=== PATIENT | male | born 1930 | race Hispanic/Latino ===

== ENCOUNTER 2017-05-27 10:15 | Inpatient (IN) | payer MEDICARE, BC ==
[2017-05-27] MEDS ORDERED: Sodium Chloride 0.9% 500 ML IV ONE (10:45)
--- NOTE | 2017-05-27 11:01 | C.PDOC ---
History Of Present Illness 87 year old male, HTN, dementia, colon CA, BPH , "lung cyst", presents to the ED with complaints of weakness for the last few days. Patient lives alone and is usually able to ambulate without difficulty. Today, neighbor found pt sitting on floor secondary to weakness. also admits to decreased appetite. denies fall, head injury, chest pain, or shortness of breath. Pt is a poor historian. Time Seen by Provider: 05/27/17 10:35 Chief Complaint (Nursing): Weakness/Neurological Deficit History Per: Patient, Other (neighbor) History/Exam Limitations: other (patient poor historian, neighbor accompanied and provided some history ) Onset/Duration Of Symptoms: Hrs, Gradual (decrease in appetite ) Current Symptoms Are (Timing): Still Present Seizure Or Post-ictal Symptoms: None Fall Associated With With Symptoms: No Recent travel outside of the [place]: No Additional History Per: Prior Records Past Medical History Reviewed: Historical Data, Nursing Documentation, Vital Signs Vital Signs: Last Vital Signs Temp 98.3 F 05/27/17 10:19 Pulse 87 05/27/17 14:51 Resp 16 05/27/17 14:51 BP 120/78 05/27/17 14:51 Pulse Ox 95 05/27/17 16:24 - Medical History PMH: Alzheimer's Disease, HTN Family History: States: Unknown Family Hx - Social History Hx Alcohol Use: No Hx Substance Use: No - Immunization History Hx Tetanus Toxoid Vaccination: No Hx Influenza Vaccination: No Hx Pneumococcal Vaccination: No Review Of Systems Review Of Systems: ROS cannot be obtained secondary to pt's inabilty to answer questions. Constitutional: Positive for: Weakness (and decreased appetite ) Cardiovascular: Negative for: Chest Pain, Palpitations Respiratory: Negative for: Cough, Shortness of Breath Gastrointestinal: Negative for: Nausea, Vomiting, Abdominal Pain Physical Exam - Physical Exam Appears: Non-toxic, No Acute Distress Skin: Warm, Dry, Pale Head: Atraumatic Eye(s): bilateral: Normal Inspection, EOMI Oral Mucosa: Moist Neck: Normal ROM, Supple Chest: Symmetrical, No Deformity Cardiovascular: Rhythm Regular, Murmur Respiratory: Normal Breath Sounds, No Rales, No Rhonchi, No Stridor, No Wheezing Gastrointestinal/Abdominal: Soft, No Tenderness, No Distention, No Guarding, No Rebound Extremity: No Pedal Edema, No Calf Tenderness, Capillary Refill (good capillary refill, less than 2 seconds ), No Deformity, No Swelling Neurological/Psych: Other (alert and awake) ED Course And Treatment - Laboratory Results Result Diagrams: 05/27/17 11:02 05/27/17 11:02 ECG: Interpreted By Me, Viewed By Me ECG Rhythm: Sinus Rhythm (87 bpm) O2 Sat by Pulse Oximetry: 95 (room air ) - Other Rad CXR X-Ray: Viewed By Me, Read By Radiologist Interpretation: CXR findings: TECHNIQUE:Chest, one view. FINDINGS: Left-sided MediPort extends to the SVC. Examination limited by habitus. LUNGS: Large rounded left hilar opacity. Right peritracheal opacity may reflect tortuous vasculature exaggerated by patient obliquity however alternatives including thyroid goiter or adenopathy cannot be excluded. Please note that chest x-ray has limited sensitivity for the detection of pulmonary masses. PLEURA:No significant pleural effusion identified. No definite pneumothorax . CARDIOVASCULAR: Heart size appears borderline enlarged. Dense atherosclerotic calcifications of the aortic knob. OSSEOUS STRUCTURES:Degenerative changes. VISUALIZED UPPER ABDOMEN: Left upper quadrant surgical clips. OTHER FINDINGS: None. IMPRESSION: Left-sided MediPort. Large rounded left hilar opacity. Correlate clinically. Neoplasm is suspected. Aneurysm cannot be excluded in the proper clinical setting. Right peritracheal opacity may reflect tortuous vasculature exaggerated by patient obliquity however alternatives including thyroid goiter or adenopathy cannot be excluded. Case discussed with KEYUR Yousif on 05/27/17 at 11:22 a.m. - CT Scan/US CT HEAD WITHOUT CONTRAST Other Rad Studies (CT/US): Read By Radiologist, Radiology Report Reviewed CT/US Interpretation: TECHNIQUE: Axial computed tomography images were obtained through the head/brain without intravenous contrast. Radiation dose: Total exam DLP = 924.38 mGy-cm. This CT exam was performed using one or more of the following dose reduction techniques: Automated exposure control, adjustment of the mA and/or kV according to patient size, and/or use of iterative reconstruction technique. FINDINGS: HEMORRHAGE: No intracranial hemorrhage. BRAIN: Diffuse atrophy with prominence of the ventricles and sulci noted. No mass effect or edema. Scattered periventricular and subcortical white matter hypodensities, which are nonspecific, but often seen with chronic microvascular ischemic disease. Please note that MRI with diffusion imaging is more sensitive in the detection of acute ischemic event. VENTRICLES: No hydrocephalus. CALVARIUM: Unremarkable. PARANASAL SINUSES: Mild mucosal thickening of the ethmoid air cells and left sphenoid sinus. MASTOID AIR CELLS : Unremarkable as visualized. No inflammatory changes. OTHER FINDINGS: None. IMPRESSION: Generalized atrophy. Nonspecific white matter changes. Progress Note: Head CT, EKG, UA, and CBC were ordered. Patient was given fluids. case discussed with Dr Beal, agreeed upon plan and admission. Disposition - Disposition Disposition: HOSPITALIZED Disposition Time: 14:00 Condition: STABLE - Clinical Impression Clinical Impression: UTI (urinary tract infection), Elevated alkaline phosphatase level, Anemia, Dementia, Opacity of lung on imaging study - Scribe Statement The provider has reviewed the documentation as recorded by the Scribe Krystle Nick All medical record entries made by the Scribe were at my direction and personally dictated by me. I have reviewed the chart and agree that the record accurately reflects my personal performance of the history, physical exam, medical decision making, and the department course for this patient. I have also personally directed, reviewed, and agree with the discharge instructions and disposition.
[2017-05-27 11:08] LABS: BASO % 0.5 % (0.0-2.0); EOS % 0.3 % (0.0-4.0); HEMATOCRIT 27.6 % (35.0-51.0); LYMPH # 0.4 K/uL (1.0-4.3); LYMPH % 6.4 % (20.0-40.0); MEAN CORPUSCULAR HEMOGLOBIN 28.7 pg (27.0-31.0); MEAN CORPUSCULAR HGB CONC 32.2 g/dL (33.0-37.0); MEAN PLATELET VOLUME 8.4 fL (7.2-11.7); MONO # 0.4 K/uL (0.0-0.8); NRBC % 0.2 % (0.0-2.0); PLATELET COUNT 238 K/uL (130-400); RED CELL DISTRIBUTION WIDTH 20.2 % (11.5-14.5); WHITE BLOOD COUNT 6.7 K/uL (4.8-10.8)
[2017-05-27 11:15] LABS: CHLORIDE 99 mmol/L (98-107)
[2017-05-27 11:16] LABS: POTASSIUM 3.6 mmol/L (3.6-5.2); SODIUM 137 mmol/L (132-148)
[2017-05-27 11:18] LABS: AST/SGOT 26 U/L (17-59); CARBON DIOXIDE 25 mmol/L (22-30); GFR AFRICAN-AMERICAN > 60; TOTAL PROTEIN 6.3 g/dL (6.3-8.3)
[2017-05-27 11:19] LABS: ALKALINE PHOSPHATASE 404 U/L (38-126); ALT/SGPT 19 U/L (21-72); BLOOD UREA NITROGEN 23 mg/dL (9-20); CALCIUM 8.6 mg/dl (8.6-10.4); GLUCOSE,RANDOM 189 mg/dL (75-110)
--- NOTE | 2017-05-27 11:27 | RAD ---
HISTORY: SOB COMPARISON: None available. TECHNIQUE: Chest, one view. FINDINGS: Left-sided MediPort extends to the SVC. Examination limited by habitus. LUNGS: Large rounded left hilar opacity. Right peritracheal opacity may reflect tortuous vasculature exaggerated by patient obliquity however alternatives including thyroid goiter or adenopathy cannot be excluded. Please note that chest x-ray has limited sensitivity for the detection of pulmonary masses. PLEURA: No significant pleural effusion identified. No definite pneumothorax . CARDIOVASCULAR: Heart size appears borderline enlarged. Dense atherosclerotic calcifications of the aortic knob. OSSEOUS STRUCTURES: Degenerative changes. VISUALIZED UPPER ABDOMEN: Left upper quadrant surgical clips. OTHER FINDINGS: None. IMPRESSION: Left-sided MediPort. Large rounded left hilar opacity. Correlate clinically. Neoplasm is suspected. Aneurysm cannot be excluded in the proper clinical setting. Right peritracheal opacity may reflect tortuous vasculature exaggerated by patient obliquity however alternatives including thyroid goiter or adenopathy cannot be excluded. Case discussed with KEYUR Yousif on 05/27/17 at 11:22 a.m.
[2017-05-27 11:46] LABS: EOSINOPHIL 1 % (0-4); NEUTROPHIL 83 % (50-75); TOTAL CELLS COUNTED 100
--- NOTE | 2017-05-27 11:48 | CT ---
PROCEDURE: CT HEAD WITHOUT CONTRAST. HISTORY: R/O Bleed COMPARISON: None available. TECHNIQUE: Axial computed tomography images were obtained through the head/brain without intravenous contrast. Radiation dose: Total exam DLP = 924.38 mGy-cm. This CT exam was performed using one or more of the following dose reduction techniques: Automated exposure control, adjustment of the mA and/or kV according to patient size, and/or use of iterative reconstruction technique. FINDINGS: HEMORRHAGE: No intracranial hemorrhage. BRAIN: Diffuse atrophy with prominence of the ventricles and sulci noted. No mass effect or edema. Scattered periventricular and subcortical white matter hypodensities, which are nonspecific, but often seen with chronic microvascular ischemic disease. Please note that MRI with diffusion imaging is more sensitive in the detection of acute ischemic event. VENTRICLES: No hydrocephalus. CALVARIUM: Unremarkable. PARANASAL SINUSES: Mild mucosal thickening of the ethmoid air cells and left sphenoid sinus. MASTOID AIR CELLS: Unremarkable as visualized. No inflammatory changes. OTHER FINDINGS: None. IMPRESSION: Generalized atrophy. Nonspecific white matter changes.
[2017-05-27 12:05] LABS: RBC URINE 12 /hpf (0-3); URINE BACTERIA RARE (<OCC); URINE BILIRUBIN NEGATIVE (NEGATIVE); URINE COLOR Amber (YELLOW); URINE GLUCOSE (UA) NORMAL (Normal); URINE KETONE NEGATIVE (NEGATIVE); URINE LEUKOCYTE ESTERASE 3+ Leu/uL (Negative); URINE PROTEIN 2+ mg/dL (NEGATIVE); WBC URINE 409 /hpf (0-5)
[2017-05-27 12:06] LABS: URINE BLOOD TRACE (NEGATIVE)
[2017-05-27] MEDS ORDERED: Sodium Chloride 0.9% 1,000 ML IV SCH (14:45)
[2017-05-27] MEDS ORDERED: cefTRIAXone IV 1 gm in Dextros 50 ML IVPB ONE (15:00)
--- NOTE | 2017-05-27 15:21 | CP.PCM.HP ---
<Isaiah Bell - Last Filed: 05/27/17 15:36> History of Present Illness - History of Present Illness History of Present Illness: CC: Weakness HPI: Patient is a 87 year old male with a history of BPH, HTN, dementia, colon cancer and urinary retention. He is here because of wosening weakness over the past several days according to the patient's friend. She is at bedside giving most of the history. She says she found him sitting up on the floor but that his legs were extremely weak so she decided to take him to the ED. He is here complaining of worsening weakness. He says his legs feel very weak though usually he is able to walk around the house without any assistance. The friend at bedside she has not noticed much movement from him over the past several days. Patient also has a advance directive with oral agreement for DNR/DNI. PMH: see above PSH: unable to obtain due to patient's dementia PFH: unable to obtain PSH: Lives alone, no smoking, etoh use, or illicit drug use, retired PMD: Dr. Moore Allergies: NKA Home Medication: Metoprolol, Aricept, Namenda, Finesteride, and Flomax. Present on Admission - Present on Admission Any Indicators Present on Admission: No History of DVT/PE: No History of Uncontrolled Diabetes: No Urinary Catheter: No Decubitus Ulcer Present: No History Surgical Site Infection Following: None Review of Systems - Review of Systems Systems not reviewed;Unavailable: Dementia All systems: reviewed and no additional remarkable complaints except - Constitutional Constitutional: Weakness. absent: Anorexia, Chills - EENT Eyes: absent: Change in Vision Ears: absent: Dizziness - Cardiovascular Cardiovascular: absent: Chest Pain - Respiratory Respiratory: absent: Dyspnea - Gastrointestinal Gastrointestinal: absent: Constipation, Diarrhea, Early Satiety, Hematemesis, Hematochezia, Nausea, Vomiting - Genitourinary Genitourinary: absent: Hematuria - Musculoskeletal Musculoskeletal: Muscle Weakness - Neurological Neurological: Weakness - Psychiatric Psychiatric: absent: Anxiety, Depression - Endocrine Endocrine: absent: Fatigue Past Patient History - Past Social History Smoking Status: Never Smoked - CARDIAC Hx Hypertension: Yes - NEUROLOGICAL Hx Alzheimer's Disease: Yes - GENITOURINARY/GYNECOLOGICAL Hx Prostate Problems: Yes - PSYCHIATRIC Hx Substance Use: No Meds Allergies/Adverse Reactions: Allergies Allergy/AdvReac Type Severity Reaction Status Date / Time No Known Allergies Allergy Verified 05/27/17 10:19 Physical Exam - Constitutional Appears: Non-toxic, No Acute Distress, Unkempt - Head Exam Head Exam: NORMAL INSPECTION - Eye Exam Eye Exam: Normal appearance, PERRL Pupil Exam: NORMAL ACCOMODATION Additional comments: pallor - Respiratory Exam Respiratory Exam: Clear to Auscultation Bilateral. absent: Rales, Rhonchi, Wheezes - Cardiovascular Exam Cardiovascular Exam: Irregular Rhythm, +S1, +S2, Systolic Murmur. absent: Gallop, Rubs - GI/Abdominal Exam GI & Abdominal Exam: Normal Bowel Sounds, Soft. absent: Guarding, Rebound, Tenderness - Extremities Exam Extremities exam: Positive for: normal inspection. Negative for: calf tenderness, pedal edema, tenderness - Back Exam Back exam: NORMAL INSPECTION - Neurological Exam Neurological exam: Alert - Psychiatric Exam Psychiatric exam: Normal Affect, Normal Mood - Skin Skin Exam: Pallor, Warm Results - Vital Signs Recent Vital Signs: Last Vital Signs Temp 98.3 F 05/27/17 10:19 Pulse 87 05/27/17 14:51 Resp 16 05/27/17 14:51 BP 120/78 05/27/17 14:51 Pulse Ox 96 05/27/17 14:51 - Labs Result Diagrams: 05/27/17 11:02 05/27/17 11:02 - EKG Data EKG Interpreted by: Myself EKG shows normal: Sinus rhythm, [place] Rate: Normal - EKG Data Interpretation: Other - Impressions Impression: sinus arrythmai, no acute ST changes Assessment & Plan (1) Anemia Assessment and Plan: Hbg is 8.9, his last Hbg was around 12. Consider transfusion if Hbg continues to drop considerably. Patient admitted to regular inpatient floor. Stool Ob x3, iron studies, B12, and folate, and retic count. hbg will most likely drop due to the IV fluids Status: Acute Priority: High (2) UTI (urinary tract infection) Assessment and Plan: Rocephin 1 gram daily Status: Acute Priority: High (3) Weakness Assessment and Plan: physical therapy, patient may need GRAZYNA Fall precaution thyroid studies and iron studies Status: Acute Priority: Medium (4) Elevated CPK Assessment and Plan: Patient most likely has some Rhabdomyalsis, IV fluids re check level in the morning. Status: Acute Priority: Medium (5) Elevated alkaline phosphatase level Assessment and Plan: re check in the am. Status: Acute Priority: Medium (6) High blood sugar Assessment and Plan: Follow up Hbg A1C. Status: Acute Priority: Medium (7) HTN (hypertension) Assessment and Plan: continue home Metoprolol 25mg daily Status: Chronic Priority: Medium (8) Dementia Assessment and Plan: continue Namenda and Aricept. Status: Chronic Priority: Medium (9) BPH (benign prostatic hyperplasia) Status: Chronic Priority: Medium (10) Prophylactic measure Assessment and Plan: pepcid 20mg bid Heparin 5000 units sc Q8h SCDs Status: Acute <Marlo Beal M - Last Filed: 05/28/17 15:39> Results - Vital Signs Recent Vital Signs: Last Vital Signs Temp 97.6 F 05/28/17 07:54 Pulse 89 05/28/17 07:54 Resp 20 05/28/17 07:54 BP 149/70 05/28/17 07:54 Pulse Ox 97 05/28/17 07:54 - Labs Result Diagrams: 05/28/17 08:20 05/28/17 08:20 Labs: Laboratory Results - last 24 hr 05/27/17 05/27/17 05/27/17 17:45 17:45 19:42 WBC RBC Hgb Hct MCV MCH MCHC RDW Plt Count MPV Neut % (Auto) Lymph % (Auto) [place] % (Auto) Eos % (Auto) Baso % (Auto) Neut # Lymph # [place] # Eos # Baso # Retic Count Sodium Potassium Chloride Carbon Dioxide Anion Gap BUN Creatinine Est GFR ( Amer) Est GFR (Non-Af Amer) Random Glucose Calcium Phosphorus Magnesium Iron 29 L TIBC 221 L % Saturation 13 L 16 L Ferritin Total Bilirubin AST ALT Alkaline Phosphatase Total Creatine Kinase Total Protein Albumin Globulin Albumin/Globulin Ratio Vitamin B12 Free T4 TSH 3rd Generation Stool Occult Blood Negative 05/28/17 05/28/17 05/28/17 08:20 08:20 08:20 WBC 6.0 RBC 3.20 L Hgb 9.2 L Hct 28.4 L MCV 88.7 MCH 28.9 MCHC 32.6 L RDW 19.9 H Plt Count 223 MPV 8.6 Neut % (Auto) 78.0 H Lymph % (Auto) 12.9 L [place] % (Auto) 8.0 Eos % (Auto) 0.7 Baso % (Auto) 0.4 Neut # 4.7 Lymph # 0.8 L [place] # 0.5 Eos # 0.0 Baso # 0.0 Retic Count 3.7 H Sodium 136 Potassium 4.2 Chloride 101 Carbon Dioxide 25 Anion Gap 14 BUN 20 Creatinine 0.9 Est GFR ( Amer) > 60 Est GFR (Non-Af Amer) > 60 Random Glucose 120 H Calcium 8.7 Phosphorus 3.2 Magnesium 2.3 Iron TIBC % Saturation Ferritin 544.0 Total Bilirubin 0.6 AST 51 ALT 26 Alkaline Phosphatase 429 H Total Creatine Kinase 1074 H Total Protein 6.1 L Albumin 3.1 L Globulin 3.0 Albumin/Globulin Ratio 1.0 Vitamin B12 404 Free T4 1.11 TSH 3rd Generation 2.42 Stool Occult Blood Attending/Attestation - Attestation I have personally seen and examined this patient.: Yes I have fully participated in the care of the patient.: Yes I have reviewed all pertinent clinical information: Yes Notes (Text): 05/28/17 15:39 Patient was seen and examined at bedside with the resident Patient is being admitted for anemia and rhabdomyolysis Restart patient on IV fluids We'll monitor CBC We will check the iron studies and stool occult I discussed the plan of care with the resident and agree with the assessment and documented
[2017-05-27 18:13] LABS: IRON 29 ug/dL (49-181)
[2017-05-28] MEDS ORDERED: Sodium Chloride 0.9% 1,000 ML IV SCH (08:02)
[2017-05-28 08:43] LABS: BASO % 0.4 % (0.0-2.0); EOS % 0.7 % (0.0-4.0); HEMATOCRIT 28.4 % (35.0-51.0); LYMPH # 0.8 K/uL (1.0-4.3); LYMPH % 12.9 % (20.0-40.0); MEAN CELL VOLUME 88.7 fL (80.0-94.0); MEAN CORPUSCULAR HEMOGLOBIN 28.9 pg (27.0-31.0); MEAN CORPUSCULAR HGB CONC 32.6 g/dL (33.0-37.0); MEAN PLATELET VOLUME 8.6 fL (7.2-11.7); MONO # 0.5 K/uL (0.0-0.8); NRBC % 0.1 % (0.0-2.0); RED CELL DISTRIBUTION WIDTH 19.9 % (11.5-14.5); RETIC% 3.7 % (0.5-1.5)
[2017-05-28 08:56] LABS: ALKALINE PHOSPHATASE 429 U/L (38-126); ALT/SGPT 26 U/L (21-72); AST/SGOT 51 U/L (17-59); BILIRUBIN,TOTAL 0.6 mg/dL (0.2-1.3); BLOOD UREA NITROGEN 20 mg/dL (9-20); CALCIUM 8.7 mg/dl (8.6-10.4); CARBON DIOXIDE 25 mmol/L (22-30); CHLORIDE 101 mmol/L (98-107); GFR AFRICAN-AMERICAN > 60; GLUCOSE,RANDOM 120 mg/dL (75-110); MAGNESIUM 2.3 mg/dL (1.6-2.3); PHOSPHOROUS 3.2 mg/dL (2.5-4.5); POTASSIUM 4.2 mmol/L (3.6-5.2); SODIUM 136 mmol/L (132-148); TOTAL PROTEIN 6.1 g/dL (6.3-8.3)
[2017-05-28 09:17] LABS: THYROID STIMULATING HORMONE 2.42 mIU/L (0.46-4.68)
[2017-05-28] MEDS: Metoprolol Succinate 25 mg XL Tab PO SCH (10:20)
[2017-05-28] MEDS ORDERED: Pneumococcal 23-Valent Vaccine IM ONE (13:25)
[2017-05-28] MEDS ORDERED: Iohexol 240 (50 ml) PO ONE (14:15)
[2017-05-28] MEDS: Sodium Chloride 0.9% 1,000 ML IV SCH ×2 (14:23→21:39)
--- NOTE | 2017-05-28 15:33 | CP.PCM.PN ---
<Marlo Beal M - Last Filed: 05/28/17 16:57> Objective - Vital Signs/Intake and Output Vital Signs (last 24 hours): Temp Pulse Resp BP Pulse Ox 97.6 F 89 20 149/70 97 05/28/17 07:54 05/28/17 07:54 05/28/17 07:54 05/28/17 07:54 05/28/17 07:54 Intake and Output: 05/28/17 05/28/17 06:59 18:59 Intake Total 540 Balance 540 - Medications Medications: Current Medications Donepezil HCl (Aricept) 10 mg PO HS [facility] Last Admin: 05/27/17 22:35 Dose: 10 mg Famotidine (Pepcid) 20 mg PO BID [facility] Last Admin: 05/28/17 10:20 Dose: 20 mg Finasteride (Proscar) 5 mg PO DAILY [facility] Last Admin: 05/28/17 10:20 Dose: 5 mg Heparin Sodium (Porcine) (Heparin) 5,000 units SC Q8 [facility] Last Admin: 05/28/17 14:19 Dose: 5,000 units Home Med (Patient's Own Medication) [address] [facility] Ceftriaxone Sodium 1 gm/ (Sodium Chloride) 100 mls @ 100 mls/hr IVPB Q24H [facility] Last Admin: 05/28/17 14:20 Dose: 100 mls/hr Sodium Chloride (Sodium Chloride 0.9%) 1,000 mls @ 100 mls/hr IV .Q10H [facility] Last Admin: 05/28/17 14:23 Dose: 100 mls/hr Metoprolol Succinate (Toprol Xl) 25 mg PO DAILY [facility] Last Admin: 05/28/17 10:20 Dose: 25 mg Pneumococcal Polyvalent Vaccine (Pneumovax 23 Vaccine) 0.5 ml IM .ONCE ONE Stop: 05/30/17 10:01 Tamsulosin HCl (Flomax) 0.4 mg PO DAILY [facility] Last Admin: 05/28/17 10:20 Dose: 0.4 mg - Labs Labs: 05/28/17 08:20 05/28/17 08:20 Attending/Attestation - Attestation I have personally seen and examined this patient.: Yes I have fully participated in the care of the patient.: Yes I have reviewed all pertinent clinical information, including history, physical exam and plan: Yes Notes (Text): 05/28/17 16:55 Patient was seen and examined at bedside Patient complains of right lower quadrant pain. On examination there is swelling and tenderness in the right lower quadrant We'll obtain a CT scan of the abdomen and pelvis We will monitor H&H and transfuse as needed CK has trended up We will start the patient on IV fluids and increase the rate to 100 mL/h I discussed the plan of care with the resident With the assessment and plan documented. 05/28/17 16:57 <Isaiah Bell H - Last Filed: 05/28/17 21:54> Subjective - Date & Time of Evaluation Date of Evaluation: 05/28/17 Time of Evaluation: 15:00 - Subjective Subjective: Dr. Beal service: Patient seen and examined in room. He is complaining of abdominal pain and constipation. He says he has been having this pain for about 6 months. Patient reports no fever or chills either. Objective - Vital Signs/Intake and Output Vital Signs (last 24 hours): Temp Pulse Resp BP Pulse Ox 97.6 F 89 20 149/70 97 05/28/17 07:54 05/28/17 07:54 05/28/17 07:54 05/28/17 07:54 05/28/17 07:54 Intake and Output: 05/28/17 05/28/17 06:59 18:59 Intake Total 540 Balance 540 - Medications Medications: Current Medications Donepezil HCl (Aricept) 10 mg PO HS [facility] Last Admin: 05/27/17 22:35 Dose: 10 mg Famotidine (Pepcid) 20 mg PO BID [facility] Last Admin: 05/28/17 10:20 Dose: 20 mg Finasteride (Proscar) 5 mg PO DAILY [facility] Last Admin: 05/28/17 10:20 Dose: 5 mg Heparin Sodium (Porcine) (Heparin) 5,000 units SC Q8 [facility] Last Admin: 05/28/17 14:19 Dose: 5,000 units Ceftriaxone Sodium 1 gm/ (Sodium Chloride) 100 mls @ 100 mls/hr IVPB Q24H [facility] Last Admin: 05/28/17 14:20 Dose: 100 mls/hr Sodium Chloride (Sodium Chloride 0.9%) 1,000 mls @ 100 mls/hr IV .Q10H [facility] Last Admin: 05/28/17 14:23 Dose: 100 mls/hr Memantine (Namenda) 10 mg PO Q12 [facility] Metoprolol Succinate (Toprol Xl) 25 mg PO DAILY [facility] Last Admin: 05/28/17 10:20 Dose: 25 mg Pneumococcal Polyvalent Vaccine (Pneumovax 23 Vaccine) 0.5 ml IM .ONCE ONE Stop: 05/30/17 10:01 Tamsulosin HCl (Flomax) 0.4 mg PO DAILY [facility] Last Admin: 05/28/17 10:20 Dose: 0.4 mg - Labs Labs: 05/28/17 08:20 05/28/17 08:20 - Constitutional Appears: Non-toxic, No Acute Distress - Respiratory Exam Respiratory Exam: Clear to Ausculation Bilateral. absent: Rales, Rhonchi, Wheezes - Cardiovascular Exam Cardiovascular Exam: REGULAR RHYTHM, RRR, +S1, +S2. absent: Gallop, Rubs - GI/Abdominal Exam GI & Abdominal Exam: Soft, Normal Bowel Sounds. absent: Tenderness - Psychiatric Exam Psychiatric exam: Normal Affect, Normal Mood - Skin Skin Exam: Pallor, Warm Assessment and Plan - Assessment and Plan (Free Text) Assessment: (1) Anemia Assessment and Plan: 05/28: hbg is 9.1, iron is very low stool ob ix negative, will give IV ferricit. Hbg is 8.9, his last Hbg was around 12. Consider transfusion if Hbg continues to drop considerably. Patient admitted to regular inpatient floor. Stool Ob x3, iron studies, B12, and folate, and retic count. hbg will most likely drop due to the IV fluids Status: Acute Priority: High (2) UTI (urinary tract infection) Assessment and Plan: 05/28: day 2 of IV Rocephin, follow up urine culture Rocephin 1 gram daily Status: Acute Priority: High (3) Weakness Assessment and Plan: physical therapy, patient may need GRAZYNA Fall precaution thyroid studies and iron studies Status: Acute Priority: Medium (4) Elevated CPK Assessment and Plan: 05/28: CPK increased to over 1000, continue IV fluids Patient most likely has some Rhabdomyalsis, IV fluids re check level in the morning. Status: Acute Priority: Medium (5) Elevated alkaline phosphatase level Assessment and Plan: 05/28: still elevated, followup Alk phos isoenzyme re check in the am. Status: Acute Priority: Medium (6) High blood sugar Assessment and Plan: 05/28: Hbg A1C pending Follow up Hbg A1C. Status: Acute Priority: Medium (7) HTN (hypertension) Assessment and Plan: continue home Metoprolol 25mg daily Status: Chronic Priority: Medium (8) Dementia Assessment and Plan: continue Namenda and Aricept. Status: Chronic Priority: Medium (9) BPH (benign prostatic hyperplasia) Status: Chronic Priority: Medium 05/28: continue Finseride and Flomax. (10) Prophylactic measure Assessment and Plan: pepcid 20mg bid Heparin 5000 units sc Q8h [facility] for constipation
[2017-05-28] MEDS ORDERED: Iodixanol 320 MG/ML 100 ML BOTTLE IV ONE (15:45)
--- NOTE | 2017-05-28 17:04 | CT ---
PROCEDURE: CT Abdomen and Pelvis with oral and IV contrast. HISTORY: possible sbo, hx of colon ca COMPARISON: None available. TECHNIQUE: Contiguous axial images of the abdomen and pelvis. Oral and IV contrast was administered. Coronal and Sagittal reformats generated and reviewed. Contrast dose: 100 cc Visipaque 320 Radiation dose: Total exam DLP = 804.91 mGy-cm. This CT exam was performed using one or more of the following dose reduction techniques: Automated exposure control, adjustment of the mA and/or kV according to patient size, and/or use of iterative reconstruction technique. FINDINGS: LOWER THORAX: Bibasilar atelectasis. No visible pleural effusion or pneumothorax. 6 mm right lower lobe nodule (series 3, image 4). 8 right lower lobe nodule (series 3, image 11). 5 mm right middle lobe nodule (series 3, image 7). Evidence of right infrahilar adenopathy. Moderate to large hiatal hernia and gastroesophageal reflux. LIVER: Numerous low-density hepatic lesions several of which are too small to characterize. Largest hypodensity resides within the hepatic dome and measures 15 mm and appears cystic. GALLBLADDER AND BILE DUCTS: Adjacent clips initially suspected to reflect cholecystectomy however these are favored to reflect postsurgical changes likely to the colon as a small cystic structure presumably the gallbladder is identified. Correlate with surgical history. PANCREAS: Unremarkable. SPLEEN: Splenomegaly. ADRENALS: Bilateral adrenal gland hypertrophy. Heterogeneous hypervascular left adrenal gland mass measures approximately 2.8 x 2.3 cm. KIDNEYS AND URETERS: Left nephrectomy. Right moderate hydroureter and mild hydronephrosis ; no obstructing calculus evident. Numerous low-density renal lesions, possibly cystic. BLADDER: Urinary bladder distension. REPRODUCTIVE: The prostate gland measures approximately 5.3 x 5.1 cm APPENDIX: Not visualized. BOWEL: The stomach is nondistended. The bowel loops appear within normal limits of caliber without evidence of intestinal obstruction. Postsurgical changes likely related to partial colectomy. Moderate constipation. Rectal wall thickening ; correlate clinically for the possibility of proctitis. PERITONEUM: No significant free fluid. No definite free air. VASCULATURE: Atherosclerotic calcifications of the aorta and branches. Aneurysmal dilatation of the infrarenal abdominal aorta measuring approximately 3.1 cm (AP dimension) by 3.0 cm (transverse dimension). BONES: Extensive sclerotic osseous metastases. Right hip arthroplasty. OTHER FINDINGS: Subcutaneous gas within the anterior abdominal wall, presumably related to recent injections; correlate clinically. Probable small accumulated fluid in bilateral inguinal regions versus small nonspecific soft tissue. IMPRESSION: Left nephrectomy. Right moderate hydroureter and mild hydronephrosis ; no obstructing calculus evident. Numerous low-density renal lesions, possibly cystic. Bilateral adrenal gland hypertrophy. Heterogeneous hypervascular left adrenal gland mass measures approximately 2.8 x 2.3 cm. Aneurysmal dilatation of the infrarenal abdominal aorta measuring approximately 3.1 cm x 3.0 cm. Adjacent clips initially suspected to reflect cholecystectomy however these are favored to reflect postsurgical changes likely to the colon as a small cystic structure presumably the gallbladder is identified. Correlate with surgical history. Evidence of extensive sclerotic osseous metastases. Right hip arthroplasty. Numerous low-density hepatic lesions several of which are too small to characterize. Largest hypodensity resides within the hepatic dome and measures 15 mm and appears cystic. Splenomegaly. No evidence of small bowel obstruction. Postsurgical changes likely related to partial colectomy. Rectal wall thickening ; correlate clinically for the possibility of proctitis. Moderate constipation. Enlarged prostate gland. Recommend correlation with PSA. Evidence of right infrahilar adenopathy. Moderate to large hiatal hernia and gastroesophageal reflux. 6 mm right lower lobe nodule. 8 right lower lobe nodule . 5 mm right middle lobe nodule. Guidelines by the Fleischner society (radiology 2005; 237:390 5-400) suggests that in patients with low risk for lung cancer, with nodules less than or equal to 8 mm in diameter should have follow-up in approximately 6-12 months. In patients with high-risk, including smokers, follow-up is recommended 3-6 months. Patient with a known malignancy for risk for metastases should receive 3 month follow-up. Additional findings as above.
[2017-05-28] MEDS: NAMENDA 28 MG PO SCH (21:34)
[2017-05-29] MEDS: Sodium Chloride 0.9% 1,000 ML IV SCH ×4 (05:55→18:20)
[2017-05-29 07:24] LABS: BASO % 0.5 % (0.0-2.0); EOS # 0.2 K/uL (0.0-0.7); EOS % 3.4 % (0.0-4.0); HEMATOCRIT 23.5 % (35.0-51.0); LYMPH # 0.6 K/uL (1.0-4.3); LYMPH % 12.8 % (20.0-40.0); MEAN CELL VOLUME 89.5 fL (80.0-94.0); MEAN CORPUSCULAR HEMOGLOBIN 28.8 pg (27.0-31.0); MEAN CORPUSCULAR HGB CONC 32.2 g/dL (33.0-37.0); MEAN PLATELET VOLUME 8.3 fL (7.2-11.7); MONO # 0.4 K/uL (0.0-0.8); MONO % 8.3 % (0.0-10.0); NRBC % 0.2 % (0.0-2.0); WHITE BLOOD COUNT 4.9 K/uL (4.8-10.8)
[2017-05-29 07:35] LABS: CHLORIDE 102 mmol/L (98-107); SODIUM 136 mmol/L (132-148)
[2017-05-29 07:36] LABS: POTASSIUM 3.7 mmol/L (3.6-5.2)
[2017-05-29 07:37] LABS: GFR AFRICAN-AMERICAN > 60
[2017-05-29 07:38] LABS: ALB/GLOB RATIO 0.9 (1.0-2.1); ALKALINE PHOSPHATASE 365 U/L (38-126); ALT/SGPT 26 U/L (21-72); AST/SGOT 29 U/L (17-59); BILIRUBIN,TOTAL 0.5 mg/dL (0.2-1.3); BLOOD UREA NITROGEN 14 mg/dL (9-20); CARBON DIOXIDE 26 mmol/L (22-30); GLUCOSE,RANDOM 104 mg/dL (75-110); PHOSPHOROUS 3.5 mg/dL (2.5-4.5); TOTAL PROTEIN 5.3 g/dL (6.3-8.3)
[2017-05-29 07:39] LABS: CALCIUM 7.9 mg/dl (8.6-10.4); MAGNESIUM 2.1 mg/dL (1.6-2.3)
[2017-05-29] MEDS: Metoprolol Succinate 25 mg XL Tab PO SCH (10:41)
--- NOTE | 2017-05-29 15:36 | CP.PCM.PN ---
<Guille Marin - Last Filed: 05/29/17 15:29> Subjective - Date & Time of Evaluation Date of Evaluation: 05/29/17 Time of Evaluation: 09:35 - Subjective Subjective: PGY1 Medicine Note for Dr. Browne Patient seen and examined at beside this morning. Patient is awake and in good spirits. States that he feels normal. States that he is no longer experiencing any abdominal pain at this time. Denies f/c, n/v, d/c, sob, cp, lightheadedness or dizziness. Objective - Vital Signs/Intake and Output Vital Signs (last 24 hours): Temp Pulse Resp BP Pulse Ox 98.1 F 89 20 145/80 97 05/29/17 07:33 05/29/17 07:33 05/29/17 07:33 05/29/17 07:33 05/29/17 07:33 Intake and Output: 05/29/17 05/29/17 06:59 18:59 Intake Total 2300 Output Total 2400 Balance -100 - Medications Medications: Current Medications Docusate Sodium (Colace) 100 mg PO DAILY [facility] Last Admin: 05/29/17 10:41 Dose: 100 mg Donepezil HCl (Aricept) 10 mg PO HS [facility] Last Admin: 05/28/17 21:34 Dose: 10 mg Famotidine (Pepcid) 20 mg PO BID [facility] Last Admin: 05/29/17 10:41 Dose: 20 mg Finasteride (Proscar) 5 mg PO DAILY [facility] Last Admin: 05/29/17 10:41 Dose: 5 mg Heparin Sodium (Porcine) (Heparin) 5,000 units SC Q8 [facility] Last Admin: 05/29/17 13:56 Dose: 5,000 units Home Med (Patient's Own Medication) 1 tab PO HS [facility] Last Admin: 05/28/17 21:34 Dose: 1 tab Ceftriaxone Sodium 1 gm/ (Sodium Chloride) 100 mls @ 100 mls/hr IVPB Q24H [facility] Last Admin: 05/29/17 13:55 Dose: 100 mls/hr Sodium Chloride (Sodium Chloride 0.9%) 1,000 mls @ 100 mls/hr IV .Q10H [facility] Last Admin: 05/29/17 10:48 Dose: Not Given Metoprolol Succinate (Toprol Xl) 25 mg PO DAILY [facility] Last Admin: 05/29/17 10:41 Dose: 25 mg Pneumococcal Polyvalent Vaccine (Pneumovax 23 Vaccine) 0.5 ml IM .ONCE ONE Stop: 05/30/17 10:01 Tamsulosin HCl (Flomax) 0.4 mg PO DAILY [facility] Last Admin: 05/29/17 10:41 Dose: 0.4 mg - Labs Labs: 05/29/17 07:08 05/29/17 07:08 Assessment and Plan - Assessment and Plan (Free Text) Plan: (1) Anemia Assessment and Plan: 05/29: Hbg dropped from 9.2->7.6, believed to be a result of the IV fluids. Will monitor and recheck in the morning. 05/28: hbg is 9.1, iron is very low stool ob ix negative, will give IV ferricit. Stool Ob x3 (neg x 1, will repeat today) B12 = 404 (normal) Retic count. = 3.7 CT (05/28) showed enlarged prostate. Will order PSA. (2) UTI (urinary tract infection) Assessment and Plan: 05/29: day 3 of IV Rocephin, UC - shows multiple organism, most likely contamination. Will re-culture 05/28: day 2 of IV Rocephin, follow up urine culture Rocephin 1 gram daily (3) Weakness Assessment and Plan: physical therapy, patient may need GRAZYNA Fall precaution Free T4 = 1.11; TSH 2.42 Iron 29, TIBC 221, % sat 16 (4) Elevated CPK Assessment and Plan: 05/28: CPK increased to over 1000, continue IV fluids Patient most likely has some Rhabdomyalsis, IV fluids re check level in the morning. (5) Elevated alkaline phosphatase level Assessment and Plan: 05/29: Alk phos 365 05/28: still elevated, followup Alk phos isoenzyme re check in the am. (6) High blood sugar Assessment and Plan: 05/29: Hbg A1C 5.[address] Hollie Marin PGY1 <Collins Browne - Last Filed: 05/29/17 16:42> Objective - Vital Signs/Intake and Output Vital Signs (last 24 hours): Temp Pulse Resp BP Pulse Ox 98.1 F 89 20 145/80 97 05/29/17 07:33 05/29/17 07:33 05/29/17 07:33 05/29/17 07:33 05/29/17 07:33 Intake and Output: 05/29/17 05/29/17 06:59 18:59 Intake Total 2300 Output Total 2400 Balance -100 - Medications Medications: Current Medications Docusate Sodium (Colace) 100 mg PO DAILY [facility] Last Admin: 05/29/17 10:41 Dose: 100 mg Donepezil HCl (Aricept) 10 mg PO HS [facility] Last Admin: 05/28/17 21:34 Dose: 10 mg Famotidine (Pepcid) 20 mg PO BID [facility] Last Admin: 05/29/17 10:41 Dose: 20 mg Finasteride (Proscar) 5 mg PO DAILY [facility] Last Admin: 05/29/17 10:41 Dose: 5 mg Heparin Sodium (Porcine) (Heparin) 5,000 units SC Q8 [facility] Last Admin: 05/29/17 13:56 Dose: 5,000 units Home Med (Patient's Own Medication) 1 tab PO HS [facility] Last Admin: 05/28/17 21:34 Dose: 1 tab Ceftriaxone Sodium 1 gm/ (Sodium Chloride) 100 mls @ 100 mls/hr IVPB Q24H [facility] Last Admin: 05/29/17 13:55 Dose: 100 mls/hr Sodium Chloride (Sodium Chloride 0.9%) 1,000 mls @ 100 mls/hr IV .Q10H [facility] Last Admin: 05/29/17 10:48 Dose: Not Given Metoprolol Succinate (Toprol Xl) 25 mg PO DAILY [facility] Last Admin: 05/29/17 10:41 Dose: 25 mg Pneumococcal Polyvalent Vaccine (Pneumovax 23 Vaccine) 0.5 ml IM .ONCE ONE Stop: 05/30/17 10:01 Tamsulosin HCl (Flomax) 0.4 mg PO DAILY [facility] Last Admin: 05/29/17 10:41 Dose: 0.4 mg - Labs Labs: 05/29/17 07:08 05/29/17 07:08 Attending/Attestation - Attestation I have personally seen and examined this patient.: Yes I have fully participated in the care of the patient.: Yes I have reviewed all pertinent clinical information, including history, physical exam and plan: Yes Notes (Text): 05/29/17 16:36 Rick attending: Patient was seen and examined by me, agrees the above note by medical office administrator. This is my first time meeting the patient also had to review some notes as well as discussed with the patient, the medical residents, and other staff. At this time his hemoglobin did come down to 7.9, he has been on intravenous fluids and this was increased just recently. It is possible that this is dilutional effect however regular monitor to see what it looks like tomorrow and if he continues to come down further he may need a blood transfusion when I saw him. He initially appeared to be alert and oriented 3 however after having more discussion with the patient it may be that he has some underlying dementia as well. He is also receiving IV antibiotics for a urinary tract infection work repeat UA as well as urine culture and sensitivity Thank you very much, Collins Browne
[2017-05-29] MEDS: NAMENDA 28 MG PO SCH (21:56)
[2017-05-29] MEDS ORDERED: TRAVATAN OD SCH (22:00)
[2017-05-29] MEDS: TRAVATAN OD SCH (22:19)
[2017-05-30] MEDS: Sodium Chloride 0.9% 1,000 ML IV SCH ×2 (06:01→14:33)
[2017-05-30 07:42] LABS: BASO % 0.5 % (0.0-2.0); EOS # 0.1 K/uL (0.0-0.7); EOS % 4.1 % (0.0-4.0); HEMATOCRIT 22.8 % (35.0-51.0); LYMPH # 0.7 K/uL (1.0-4.3); LYMPH % 18.7 % (20.0-40.0); MEAN CELL VOLUME 89.6 fL (80.0-94.0); MEAN CORPUSCULAR HEMOGLOBIN 28.8 pg (27.0-31.0); MEAN CORPUSCULAR HGB CONC 32.1 g/dL (33.0-37.0); MEAN PLATELET VOLUME 8.1 fL (7.2-11.7); MONO # 0.3 K/uL (0.0-0.8); NRBC % 0.1 % (0.0-2.0); WHITE BLOOD COUNT 3.6 K/uL (4.8-10.8)
[2017-05-30] MEDS ORDERED: Pneumococcal 23-Valent Vaccine IM ONE (10:00)
[2017-05-30] MEDS: Metoprolol Succinate 25 mg XL Tab PO SCH (10:23)
[2017-05-30 11:47] LABS: ALKALINE PHOSPHATASE 431 U/L (40-115)
[2017-05-30 16:14] VITALS: RESP 20
--- NOTE | 2017-05-30 16:38 | CP.PCM.PN ---
<Guille Marin - Last Filed: 05/30/17 16:43> Subjective - Date & Time of Evaluation Date of Evaluation: 05/30/17 Time of Evaluation: 07:45 - Subjective Subjective: PGY1 Medicine Note for Dr. Browne Patient seen and examined this morning at bedside. Patient states that he feels perfectly normal. He states that he is eating everything that is put in front of him. States he has no complaints at this time. Denies f/c, n/v, d/c, sob or cp. Objective - Vital Signs/Intake and Output Vital Signs (last 24 hours): Temp Pulse Resp BP Pulse Ox 98.4 F 71 20 112/62 97 05/30/17 16:15 05/30/17 16:15 05/30/17 16:15 05/30/17 16:15 05/30/17 08:00 Intake and Output: 05/30/17 05/30/17 06:59 18:59 Intake Total 2000 0 Output Total 1750 Balance 250 0 - Medications Medications: Current Medications Docusate Sodium (Colace) 100 mg PO DAILY [facility] Last Admin: 05/30/17 10:23 Dose: 100 mg Donepezil HCl (Aricept) 10 mg PO HS [facility] Last Admin: 05/29/17 22:01 Dose: 10 mg Famotidine (Pepcid) 20 mg PO BID [facility] Last Admin: 05/30/17 10:23 Dose: 20 mg Finasteride (Proscar) 5 mg PO DAILY [facility] Last Admin: 05/30/17 10:23 Dose: 5 mg Heparin Sodium (Porcine) (Heparin) 5,000 units SC Q8 [facility] Last Admin: 05/30/17 13:30 Dose: 5,000 units Home Med (Patient's Own Medication) 1 tab PO HS [facility] Last Admin: 05/29/17 21:56 Dose: 1 tab Home Med (Home Med) 0 unit OD HS [facility] Last Admin: 05/29/17 22:19 Dose: 1 unit Ceftriaxone Sodium 1 gm/ (Sodium Chloride) 100 mls @ 100 mls/hr IVPB Q24H [facility] Last Admin: 05/30/17 14:32 Dose: Not Given Sodium Chloride (Sodium Chloride 0.9%) 1,000 mls @ 100 mls/hr IV .Q10H [facility] Last Admin: 05/30/17 14:33 Dose: Not Given Metoprolol Succinate (Toprol Xl) 25 mg PO DAILY [facility] Last Admin: 05/30/17 10:23 Dose: 25 mg Tamsulosin HCl (Flomax) 0.4 mg PO DAILY [facility] Last Admin: 05/30/17 10:23 Dose: 0.4 mg - Labs Labs: 05/30/17 06:52 05/29/17 07:08 - Constitutional Appears: Non-toxic, No Acute Distress - Head Exam Head Exam: ATRAUMATIC, NORMOCEPHALIC - Eye Exam Eye Exam: EOMI, Normal appearance - ENT Exam ENT Exam: Mucous Membranes Moist - Respiratory Exam Respiratory Exam: Clear to Ausculation Bilateral, NORMAL BREATHING PATTERN. absent: Accessory Muscle Use, Wheezes, Respiratory Distress - Cardiovascular Exam Cardiovascular Exam: REGULAR RHYTHM, +S1, +S2 - Extremities Exam Extremities Exam: absent: Calf Tenderness, Pedal Edema - Neurological Exam Neurological Exam: Alert, Awake. absent: Oriented x3 (hx of dementia) - Skin Skin Exam: Dry, Normal Color, Warm Assessment and Plan - Assessment and Plan (Free Text) Plan: (1) Anemia Assessment and Plan: 05/30: Hbg dropped from 7.6->7.3, got patient consented for blood transfusion. Patient refused blood transfusion, wishes doctors to call friend Angela Medina to ask what she thinks. Unable to reach Angela Medina at phone number [phone]. Two units put on hold for patient. 05/29: Hbg dropped from 9.2->7.6, believed to be a result of the IV fluids. Will monitor and recheck in the morning. 05/28: hbg is 9.1, iron is very low stool ob ix negative, will give IV ferricit. Stool Ob x3 (neg x 1, will repeat today) B12 = 404 (normal) Retic count. = 3.7 CT (05/28) showed enlarged prostate. Will order PSA. (2) UTI (urinary tract infection) Assessment and Plan: 05/29: day 3 of IV Rocephin, UC - shows multiple organism, most likely contamination. Will re-culture 05/28: day 2 of IV Rocephin, follow up urine culture Rocephin 1 gram daily (3) Weakness Assessment and Plan: physical therapy, patient may need GRAZYNA Fall precaution Free T4 = 1.11; TSH 2.42 Iron 29, TIBC 221, % sat 16 (4) Elevated CPK Assessment and Plan: 05/28: CPK increased to over 1000, continue IV fluids Patient most likely has some Rhabdomyalsis, IV fluids re check level in the morning. (5) Elevated alkaline phosphatase level Assessment and Plan: 05/29: Alk phos 365 05/28: still elevated, followup Alk phos isoenzyme re check in the am. (6) High blood sugar Assessment and Plan: 05/29: Hbg A1C 5.[address] Hollie Marin PGY1 <Collins Browne H - Last Filed: 05/30/17 17:02> Objective - Vital Signs/Intake and Output Vital Signs (last 24 hours): Temp Pulse Resp BP Pulse Ox 98.4 F 71 20 112/62 97 05/30/17 16:15 05/30/17 16:15 05/30/17 16:15 05/30/17 16:15 05/30/17 08:00 Intake and Output: 05/30/17 05/30/17 06:59 18:59 Intake Total 2000 0 Output Total 1750 Balance 250 0 - Medications Medications: Current Medications Docusate Sodium (Colace) 100 mg PO DAILY [facility] Last Admin: 05/30/17 10:23 Dose: 100 mg Donepezil HCl (Aricept) 10 mg PO [facility] Last Admin: 05/29/17 22:01 Dose: 10 mg Famotidine (Pepcid) 20 mg PO BID [facility] Last Admin: 05/30/17 10:23 Dose: 20 mg Finasteride (Proscar) 5 mg PO DAILY [facility] Last Admin: 05/30/17 10:23 Dose: 5 mg Heparin Sodium (Porcine) (Heparin) 5,000 units SC Q8 [facility] Last Admin: 05/30/17 13:30 Dose: 5,000 units Home Med (Patient's Own Medication) 1 tab PO [facility] Last Admin: 05/29/17 21:56 Dose: 1 tab Home Med (Home Med) 0 unit OD [facility] Last Admin: 05/29/17 22:19 Dose: 1 unit Ceftriaxone Sodium 1 gm/ (Sodium Chloride) 100 mls @ 100 mls/hr IVPB Q24H [facility] Last Admin: 05/30/17 14:32 Dose: Not Given Sodium Chloride (Sodium Chloride 0.9%) 1,000 mls @ 100 mls/hr IV .Q10H [facility] Last Admin: 05/30/17 14:33 Dose: Not Given Metoprolol Succinate (Toprol Xl) 25 mg PO DAILY [facility] Last Admin: 05/30/17 10:23 Dose: 25 mg Tamsulosin HCl (Flomax) 0.4 mg PO DAILY [facility] Last Admin: 05/30/17 10:23 Dose: 0.4 mg - Labs Labs: 05/30/17 06:52 05/29/17 07:08 Attending/Attestation - Attestation I have personally seen and examined this patient.: Yes I have fully participated in the care of the patient.: Yes I have reviewed all pertinent clinical information, including history, physical exam and plan: Yes Notes (Text): Medical attending: Patient was seen and examined by me, agrees the above note by medical typist. We're in process of try to reach out to the patient's POA with regards to a blood transfusion because the patient explains to us that he' s just not sure if he wants that are not. Is being said the we were careful to explained to him that his hemoglobin is on the low side and that if he continues to drop further that he might start having symptoms of anemia. Again the patient said that he was not sure he would rather us call a telephone number in the chart. We pointed out to the patient that he was here for weakness the patient states that he understands Later on I was informed that the number that was being called to haven't been able to get a pickup yet was early try again Thank you very much, Collins Browne
--- NOTE | 2017-05-30 17:48 | CARD ---
APPROVED REPORT EKG Measurement Heart [id number] VT [id number] <Conclusion> Sinus rhythm with marked sinus arrhythmia Left axis deviation Abnormal ECG
[2017-05-30] MEDS: NAMENDA 28 MG PO SCH (21:38)
[2017-05-30 23:37] VITALS: O2SAT 95
[2017-05-31] MEDS: Sodium Chloride 0.9% 1,000 ML IV SCH ×2 (00:45→20:20)
[2017-05-31 07:16] LABS: BASO % 0.5 % (0.0-2.0); EOS # 0.1 K/uL (0.0-0.7); EOS % 3.5 % (0.0-4.0); HEMATOCRIT 25.9 % (35.0-51.0); LYMPH # 0.6 K/uL (1.0-4.3); LYMPH % 16.5 % (20.0-40.0); MEAN CORPUSCULAR HEMOGLOBIN 29.5 pg (27.0-31.0); MEAN CORPUSCULAR HGB CONC 33.9 g/dL (33.0-37.0); MONO # 0.3 K/uL (0.0-0.8); MONO % 7.4 % (0.0-10.0); NRBC % 0.3 % (0.0-2.0); RED CELL DISTRIBUTION WIDTH 18.8 % (11.5-14.5); WHITE BLOOD COUNT 3.6 K/uL (4.8-10.8)
[2017-05-31 07:30] LABS: MEAN CELL VOLUME 87.2 fL (80.0-94.0)
[2017-05-31 07:38] LABS: CHLORIDE 100 mmol/L (98-107); POTASSIUM 3.7 mmol/L (3.6-5.2); SODIUM 133 mmol/L (132-148)
[2017-05-31 07:40] LABS: BILIRUBIN,TOTAL 0.6 mg/dL (0.2-1.3); GFR AFRICAN-AMERICAN > 60
[2017-05-31 07:41] LABS: ALB/GLOB RATIO 0.9 (1.0-2.1); ALT/SGPT 29 U/L (21-72); AST/SGOT 21 U/L (17-59); BLOOD UREA NITROGEN 13 mg/dL (9-20); CALCIUM 7.5 mg/dl (8.6-10.4); CARBON DIOXIDE 25 mmol/L (22-30); GLUCOSE,RANDOM 82 mg/dL (75-110); TOTAL PROTEIN 5.1 g/dL (6.3-8.3)
[2017-05-31 07:43] LABS: ALKALINE PHOSPHATASE 345 U/L (38-126)
[2017-05-31] MEDS: Metoprolol Succinate 25 mg XL Tab PO SCH (09:39)
--- NOTE | 2017-05-31 13:08 | CP.PCM.PN ---
<Guille Marin - Last Filed: 05/31/17 12:56> Subjective - Date & Time of Evaluation Date of Evaluation: 05/31/17 Time of Evaluation: 07:00 - Subjective Subjective: PGY1 Medicine Note for Dr. Browne Patient seen and examined at bedside this morning. Patient states that he is feeling great. He states that he is eating very well and has no complaints at this time. He says he is in no pain. Denies f/c, n/v, d/c, sob, cp, lightheadedness or dizziness. Objective - Vital Signs/Intake and Output Vital Signs (last 24 hours): Temp Pulse Resp BP Pulse Ox 97.5 F L 69 20 133/75 95 05/31/17 07:19 05/31/17 07:19 05/31/17 07:19 05/31/17 07:19 05/31/17 07:19 Intake and Output: 05/31/17 05/31/17 06:59 18:59 Intake Total 2494 Output Total 500 Balance 1993 - Medications Medications: Current Medications Docusate Sodium (Colace) 100 mg PO DAILY [facility] Last Admin: 05/31/17 09:39 Dose: 100 mg Donepezil HCl (Aricept) 10 mg PO HS [facility] Last Admin: 05/30/17 21:34 Dose: 10 mg Famotidine (Pepcid) 20 mg PO BID [facility] Last Admin: 05/31/17 09:39 Dose: 20 mg Finasteride (Proscar) 5 mg PO DAILY [facility] Last Admin: 05/31/17 09:39 Dose: 5 mg Heparin Sodium (Porcine) (Heparin) 5,000 units SC Q8 [facility] Last Admin: 05/31/17 06:59 Dose: 5,000 units Home Med (Patient's Own Medication) 1 tab PO HS [facility] Last Admin: 05/30/17 21:38 Dose: 1 tab Home Med (Home Med) 0 unit OD HS [facility] Last Admin: 05/29/17 22:19 Dose: 1 unit Ceftriaxone Sodium 1 gm/ (Sodium Chloride) 100 mls @ 100 mls/hr IVPB Q24H [facility] Last Admin: 05/30/17 14:32 Dose: Not Given Sodium Chloride (Sodium Chloride 0.9%) 1,000 mls @ 100 mls/hr IV .Q10H [facility] Last Admin: 05/31/17 00:45 Dose: 100 mls/hr Metoprolol Succinate (Toprol Xl) 25 mg PO DAILY [facility] Last Admin: 05/31/17 09:39 Dose: 25 mg Tamsulosin HCl (Flomax) 0.4 mg PO DAILY [facility] Last Admin: 05/31/17 09:39 Dose: 0.4 mg - Labs Labs: 05/31/17 06:59 05/31/17 04:00 - Constitutional Appears: Non-toxic, No Acute Distress - Head Exam Head Exam: ATRAUMATIC, NORMOCEPHALIC - Eye Exam Eye Exam: EOMI, Normal appearance - ENT Exam ENT Exam: Mucous Membranes Moist - Respiratory Exam Respiratory Exam: Clear to Ausculation Bilateral, NORMAL BREATHING PATTERN. absent: Accessory Muscle Use, Respiratory Distress - Cardiovascular Exam Cardiovascular Exam: REGULAR RHYTHM, +S1, +S2 - GI/Abdominal Exam GI & Abdominal Exam: Soft, Normal Bowel Sounds. absent: Distended, Tenderness - Extremities Exam Extremities Exam: absent: Calf Tenderness, Pedal Edema Additional comments: Swelling of the left UE - 05/30 venous doppler shows no abnormalities - Neurological Exam Neurological Exam: Alert, Awake. absent: Oriented x3 (hx of dementia. pt waxes and wanes. ) - Psychiatric Exam Psychiatric exam: Normal Affect, Normal Mood - Skin Skin Exam: Dry, Normal Color, Warm Assessment and Plan - Assessment and Plan (Free Text) Plan: (1) Anemia Assessment and Plan: 05/31: Patient was transferred 2 units later in the day yesterday, 05/30. Hgb today is 8.8, awaiting repeat fecal occult blood study. Will set patient up for discharge to [facility] as patient lives at home alone, with no help. 05/30: Hbg dropped from 7.6->7.3, got patient consented for blood transfusion. Patient refused blood transfusion, wishes doctors to call friend Angela Medina to ask what she thinks. Unable to reach Angela Adam at phone number [phone]. Two units put on hold for patient. 05/29: Hbg dropped from 9.2->7.6, believed to be a result of the IV fluids. Will monitor and recheck in the morning. 05/28: hbg is 9.1, iron is very low stool ob ix negative, will give IV ferricit. Stool Ob x3 (neg x 1, will repeat today) B12 = 404 (normal) Retic count. = 3.7 CT (05/28) showed enlarged prostate. Will order PSA. (2) UTI (urinary tract infection) Assessment and Plan: 05/31: day 5 of IV Rocephin 05/29: day 3 of IV Rocephin, UC - shows multiple organism, most likely contamination. Will re-culture 05/28: day 2 of IV Rocephin, follow up urine culture Rocephin 1 gram daily (3) Weakness Assessment and Plan: physical therapy, patient may need GRAZYNA Fall precaution Free T4 = 1.11; TSH 2.42 Iron 29, TIBC 221, % sat 16 (4) Elevated CPK Assessment and Plan: 05/31: continue IV fluids. 05/28: CPK increased to over 1000, continue IV fluids Patient most likely has some Rhabdomyalsis, IV fluids re check level in the morning. (5) Elevated alkaline phosphatase level Assessment and Plan: 05/31: alk phos 345 05/29: Alk phos 365 05/28: still elevated, followup Alk phos isoenzyme re check in the am. (6) High blood sugar Assessment and Plan: 05/29: Hbg A1C 5.[address] Hollie Marin PGY1 <Collins Browne - Last Filed: 05/31/17 14:48> Objective - Vital Signs/Intake and Output Vital Signs (last 24 hours): Temp Pulse Resp BP Pulse Ox 97.5 F L 69 20 133/75 95 05/31/17 07:19 05/31/17 07:19 05/31/17 07:19 05/31/17 07:19 05/31/17 07:19 Intake and Output: 05/31/17 05/31/17 06:59 18:59 Intake Total 2494 Output Total 500 400 Balance 1993 - Medications Medications: Current Medications Docusate Sodium (Colace) 100 mg PO DAILY [facility] Last Admin: 05/31/17 09:39 Dose: 100 mg Donepezil HCl (Aricept) 10 mg PO HS [facility] Last Admin: 05/30/17 21:34 Dose: 10 mg Famotidine (Pepcid) 20 mg PO BID [facility] Last Admin: 05/31/17 09:39 Dose: 20 mg Finasteride (Proscar) 5 mg PO DAILY [facility] Last Admin: 05/31/17 09:39 Dose: 5 mg Heparin Sodium (Porcine) (Heparin) 5,000 units SC Q8 [facility] Last Admin: 05/31/17 14:13 Dose: 5,000 units Home Med (Patient's Own Medication) 1 tab PO HS [facility] Last Admin: 05/30/17 21:38 Dose: 1 tab Home Med (Home Med) 0 unit OD HS [facility] Last Admin: 05/29/17 22:19 Dose: 1 unit Ceftriaxone Sodium 1 gm/ (Sodium Chloride) 100 mls @ 100 mls/hr IVPB Q24H [facility] Last Admin: 05/31/17 14:09 Dose: 100 mls/hr Sodium Chloride (Sodium Chloride 0.9%) 1,000 mls @ 100 mls/hr IV .Q10H [facility] Last Admin: 05/31/17 00:45 Dose: 100 mls/hr Metoprolol Succinate (Toprol Xl) 25 mg PO DAILY [facility] Last Admin: 05/31/17 09:39 Dose: 25 mg Tamsulosin HCl (Flomax) 0.4 mg PO DAILY [facility] Last Admin: 05/31/17 09:39 Dose: 0.4 mg - Labs Labs: 05/31/17 06:59 05/31/17 04:00 Attending/Attestation - Attestation I have personally seen and examined this patient.: Yes I have fully participated in the care of the patient.: Yes I have reviewed all pertinent clinical information, including history, physical exam and plan: Yes Notes (Text): 05/31/17 14:46 Medical attending: Patient was seen and examined by me, agrees the above note by medical interpreter. The patient reported that he felt okay he did not have any new complaints or concerns overnight he had 2 units of packed red blood cells given. Slight his hemoglobin is higher today. He denied having shortness of breath or difficulty breathing He still has difficulty walking according to the review of the history and physical he normally walks for was brought in due to weakness while here the patient states "I haven't walking years" however this seems to be different from the information from the history and physical We're going to try to discharge the patient to subacute rehabilitation as I do not think he will be able to go home home due to prolonged weakness Thank you very much, Collins Browne
[2017-05-31 16:24] VITALS: BP 109/65; PULSE 70; TEMP 98
[2017-05-31] MEDS: NAMENDA 28 MG PO SCH (21:22)
[2017-05-31] MEDS: TRAVATAN OD SCH (21:23)
[2017-06-02 04:02] LABS: BONE ISOENZYME 82 % (28-66); INTESTINAL ISOENZYME 4 % (1-24); LIVER ISOENZYME 18 % (25-69); MACROHEPATIC ISOENZYME 0 % (<=0); PLACENTAL ISOENZYME 0 % (<=0)
--- NOTE | 2017-06-03 10:03 | CP.PCM.DIS ---
<Guille Marin - Last Filed: 06/03/17 10:35> Provider - Provider Date of Admission: 05/27/17 12:20 Attending physician: Marlo Beal MD Time Spent in preparation of Discharge (in minutes): 45 Hospital Course - Lab Results Lab Results: Micro Results 05/27/17 17:29 Urine,Clean Catch Urine Culture - Final 10-50,000 CFU/ML. MULTIPLE SPECIES. PROBABLE CONTAMINATION. Most Recent Lab Values WBC 3.6 K/uL (4.8-10.8) L 05/31/17 06:59 RBC 2.97 Mil/uL (4.40-5.90) L 05/31/17 06:59 Hgb 8.8 g/dL (12.0-18.0) L 05/31/17 06:59 Hct 25.9 % (35.0-51.0) L 05/31/17 06:59 MCV 87.2 fL (80.0-94.0) D 05/31/17 06:59 MCH 29.5 pg (27.0-31.0) 05/31/17 06:59 MCHC 33.9 g/dL (33.0-37.0) 05/31/17 06:59 RDW 18.8 % (11.5-14.5) H 05/31/17 06:59 Plt Count 166 K/uL (130-400) 05/31/17 06:59 MPV 8.0 fL (7.2-11.7) 05/31/17 06:59 Neut % (Auto) 72.1 % (50.0-75.0) 05/31/17 06:59 Lymph % (Auto) 16.5 % (20.0-40.0) L 05/31/17 06:59 [place] % (Auto) 7.4 % (0.0-10.0) 05/31/17 06:59 Eos % (Auto) 3.5 % (0.0-4.0) 05/31/17 06:59 Baso % (Auto) 0.5 % (0.0-2.0) 05/31/17 06:59 Neut # 2.6 K/uL (1.8-7.0) 05/31/17 06:59 Lymph # 0.6 K/uL (1.0-4.3) L 05/31/17 06:59 [place] # 0.3 K/uL (0.0-0.8) 05/31/17 06:59 Eos # 0.1 K/uL (0.0-0.7) 05/31/17 06:59 Baso # 0.0 K/uL (0.0-0.2) 05/31/17 06:59 Neutrophils % (Manual) 83 % (50-75) H 05/27/17 11:02 Band Neutrophils % 1 % (0-2) 05/27/17 11:02 Lymphocytes % (Manual) 9 % (20-40) L 05/27/17 11:02 Monocytes % (Manual) 6 % (0-10) 05/27/17 11:02 Eosinophils % (Manual) 1 % (0-4) 05/27/17 11:02 Platelet Estimate Normal (NORMAL) 05/27/17 11:02 Polychromasia Slight 05/27/17 11:02 Hypochromasia (manual) Slight 05/27/17 11:02 Poikilocytosis (manual Slight 05/27/17 11:02 Anisocytosis (manual) Moderate 05/27/17 11:02 Microcytosis (manual) Slight 05/27/17 11:02 Macrocytosis (manual) Slight 05/27/17 11:02 Ovalocytes Slight 05/27/17 11:02 Retic Count 3.7 % (0.5-1.5) H 05/28/17 08:20 Sodium 133 mmol/L (132-148) 05/31/17 04:00 Potassium 3.7 mmol/L (3.6-5.2) 05/31/17 04:00 Chloride 100 mmol/L (98-107) 05/31/17 04:00 Carbon Dioxide 25 mmol/L (22-30) 05/31/17 04:00 Anion Gap 12 (10-20) 05/31/17 04:00 BUN 13 mg/dL (9-20) 05/31/17 04:00 Creatinine 0.8 MG/DL (0.8-1.5) 05/31/17 04:00 Est GFR ( Amer) > 60 05/31/17 04:00 Est GFR (Non-Af Amer) > 60 05/31/17 04:00 POC Glucose (mg/dL) 101 mg/dL (65-110) 05/30/17 07:41 Random Glucose 82 mg/dL (75-110) 05/31/17 04:00 Hemoglobin A1c 5.4 % (4.2-6.5) 05/28/17 08:20 Calcium 7.5 mg/dl (8.6-10.4) L 05/31/17 04:00 Phosphorus 3.5 mg/dL (2.5-4.5) 05/29/17 07:08 Magnesium 2.1 mg/dL (1.6-2.3) 05/29/17 07:08 Iron 29 ug/dL (49-181) L 05/27/17 17:45 TIBC 221 ug/dL (250-450) L 05/27/17 17:45 % Saturation 13 (20-55) L 05/27/17 17:45 Ferritin 544.0 ng/mL 05/28/17 08:20 Total Bilirubin 0.6 mg/dL (0.2-1.3) 05/31/17 04:00 AST 21 U/L (17-59) 05/31/17 04:00 ALT 29 U/L (21-72) 05/31/17 04:00 Alkaline Phosphatase 345 U/L (38-126) H 05/31/17 04:00 Alk Phos Iso-Intestine 4 % (1-24) 05/28/17 08:20 Alk Phos Iso-Bone 82 % (28-66) H 05/28/17 08:20 Alk Phos Iso-Liver 18 % (25-69) L 05/28/17 08:20 Alk Phos Iso-Placenta 0 % (<=0) 05/28/17 08:20 Alk Phos Iso-Renal 0 % (<=0) 05/28/17 08:20 Total Creatine Kinase 1074 U/L (55-170) H 05/28/17 08:20 CK-MB (Mass) 3.19 ng/mL (0.0-3.38) 05/27/17 11:02 Troponin I < 0.0120 ng/mL (0.00-0.120) 05/27/17 11:02 Total Protein 5.1 g/dL (6.3-8.3) L 05/31/17 04:00 Albumin 2.4 g/dL (3.5-5.0) L 05/31/17 04:00 Globulin 2.7 gm/dL (2.2-3.9) 05/31/17 04:00 Albumin/Globulin Ratio 0.9 (1.0-2.1) L 05/31/17 04:00 Free PSA >17.0 ng/mL 05/30/17 06:52 % Free PSA Not calculated Percent (>25) 05/30/17 06:52 Total PSA 1372.0 ng/mL (<=4.0) H 05/30/17 06:52 Prostate Cancer Risk See note Percent 05/30/17 06:52 Vitamin B12 404 pg/mL (239-931) 05/28/17 08:20 RBC Folate 1138 ng/mL RBC (>280) 05/27/17 17:45 Free T4 1.11 ng/dL (0.78-2.19) 05/28/17 08:20 TSH 3rd Generation 2.42 mIU/L (0.46-4.68) 05/28/17 08:20 Urine Color Kaylee (YELLOW) 05/27/17 11:57 Urine Clarity Hazy (Clear) 05/27/17 11:57 Urine pH 6.0 (5.0-8.0) 05/27/17 11:57 Ur Specific [place] 1.026 (1.003-1.030) 05/27/17 11:57 Urine Protein 2+ mg/dL (NEGATIVE) H 05/27/17 11:57 Urine Glucose (UA) Normal mg/dL (Normal) 05/27/17 11:57 Urine Ketones Negative mg/dL (NEGATIVE) 05/27/17 11:57 Urine Blood Trace (NEGATIVE) H 05/27/17 11:57 Urine Nitrate Negative (NEGATIVE) 05/27/17 11:57 Urine Bilirubin Negative (NEGATIVE) 05/27/17 11:57 Urine Urobilinogen 4.0 mg/dL (0.2-1.0) 05/27/17 11:57 Ur Leukocyte Esterase 3+ Mona/uL (Negative) H 05/27/17 11:57 Urine WBC (Auto) 409 /hpf (0-5) H 05/27/17 11:57 Urine RBC (Auto) 12 /hpf (0-3) H 05/27/17 11:57 Ur Squamous Epith Cells 1 /hpf (0-5) 05/27/17 11:57 Urine Bacteria Rare (<OCC) 05/27/17 11:57 Stool Occult Blood Negative (NEGATIVE) 05/27/17 19:42 Blood Type O POSITIVE 05/30/17 14:00 Antibody Screen Negative 05/30/17 14:00 - Hospital Course Hospital Course: As per admission documentation Patient is a 87 year old male with a history of BPH, HTN, dementia, colon cancer and urinary retention. He is here because of wosening weakness over the past several days according to the patient's friend. She is at bedside giving most of the history. She says she found him sitting up on the floor but that his legs were extremely weak so she decided to take him to the ED. He is here complaining of worsening weakness. He says his legs feel very weak though usually he is able to walk around the house without any assistance. The friend at bedside she has not noticed much movement from him over the past several days. Patient was admitted for Anemia and weakness to the hospitalist service from the ED. He was given fluids while on the floor for an elevated CPK. We expected his hbg to drop from his original admission hgb of 8.9 (05/27) and 9.2 (05/28) after getting fluids on 05/28. His hgb dropped to 7.6 on 05/29. His stool occult was negative x3. We decided to monitor for one more day as the patient was asymptomatic. The following morning (04/29) his hgb decreased to 7.3. Patient was transfused 2 units of pRBCs on the floor. On 05/31 his hgb increased to 8.8. The patient was stable throughout his course of stay and denied any symptoms throughout his entire hospital stay. 05/27 CT head w/o contrast - generalized atrophy. Nonspecific white matter changes. No bleed. 05/28 CT abd/pelvis w/ oral and iv contrast to r/o sbo and pt with hx of colon CA : - Left nephrectomy. Right moderate hydroureter and mild hydronephrosis ; no obstructing calculus evident. Numerous low-density renal lesions, possibly cystic. - Bilateral adrenal gland hypertrophy. Heterogeneous hypervascular left adrenal gland mass measures approximately 2.8 x 2.3 cm. 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 - Adjacent clips initially suspected to reflect cholecystectomy however these are favored to reflect postsurgical changes likely to the colon as a small cystic structure presumably the gallbladder is identified. Correlate with surgical history. - Evidence of extensive sclerotic osseous metastases. Right hip arthroplasty. - Numerous low-density hepatic lesions several of which are too small to characterize. Largest hypodensity resides within the hepatic dome and measures 15 mm and appears cystic. - Splenomegaly. - No evidence of small bowel obstruction. Postsurgical changes likely related to partial colectomy. Rectal wall thickening ; correlate clinically for the possibility of proctitis. Moderate constipation. - Enlarged prostate gland. Recommend correlation with PSA. - Evidence of right infrahilar adenopathy. - Moderate to large hiatal hernia and gastroesophageal reflux. - 6 mm right lower lobe nodule. 8 right lower lobe nodule . 5 mm right middle lobe nodule. Guidelines by the Fleischner society (radiology 2005; 237:390 5-400 ) suggests that in patients with low risk for lung cancer, with nodules less than or equal to 8 mm in diameter should have follow-up in approximately 6-12 months. In patients with high-risk, including smokers, follow-up is recommended 3-6 months. Patient with a known malignancy for risk for metastases should receive 3 month follow-up. 05/30 Duplex scan of Left UE due to swelling of L UE - r/o clot - no abnormalities seen. normal vascular. Discharge Instructions: Please discharge patient Sub-Acute Rehab, as per Dr. Browne. Patient is to continue home medications as instructed by his Primary Care Physician, Dr. Moore. Patient is to follow up with Dr. Moore within 1 week of discharge from Sub-Acute Rehab. If symptoms worsen, patient is to return to the hospital for further evaluation and treatment. Instructions were explained to the patient. Patient understands and agrees. Start taking over the counter iron supplements Continue Home Medications: Namenda 28 mg PO daily Proscar 5 mg PO daily Toprol XL 25 mg PO daily Aricept 10 mg PO daily Flomax 0.4 PO daily - Date & Time of H&P Date of H&P: 05/27/17 Time of H&P: 15:20 Discharge Exam - Head Exam Head Exam: ATRAUMATIC, NORMOCEPHALIC - Eye Exam Eye Exam: EOMI, Normal appearance - ENT Exam ENT Exam: Mucous Membranes Moist - Respiratory Exam Respiratory Exam: Clear to PA & Lateral, NORMAL BREATHING PATTERN. absent: Accessory Muscle Use, Respiratory Distress - Cardiovascular Exam Cardiovascular Exam: REGULAR RHYTHM, +S1, +S2 - GI/Abdominal Exam GI & Abdominal Exam: Normal Bowel Sounds. absent: Distended, Guarding, Rigid - Extremities Exam Extremities exam: normal inspection, pedal pulses present - Neurological Exam Neurological exam: Alert, Altered (baseline dementia.) - Psychiatric Exam Psychiatric exam: Normal Affect, Normal Mood - Skin Skin Exam: Dry, Normal Color, Warm Discharge Plan - Follow Up Plan Condition: STABLE Disposition: REHAB FACILITY/REHAB UNIT Instructions: Urinary Tract Infection in Men (DC), Weakness (GEN), Anemia (DC) Additional Instructions: Please discharge patient Sub-Acute Rehab, as per Dr. Browne. Patient is to continue home medications as instructed by his Primary Care Physician, Dr. Moore. Patient is to follow up with Dr. Moore within 1 week of discharge from Sub-Acute Rehab. If symptoms worsen, patient is to return to the hospital for further evaluation and treatment. Instructions were explained to the patient. Patient understands and agrees. Start taking over the counter iron supplements Continue Home Medications: Namenda 28 mg PO daily Proscar 5 mg PO daily Toprol XL 25 mg PO daily Aricept 10 mg PO daily Flomax 0.4 PO daily Referrals: Bessy Moore MD [Staff Provider] - Clinical Quality Measures - Date & Time of Discharge Summary Date of Discharge Summary: 06/03/17 Time of Discharge Summary: 10:58 <Collins Browne - Last Filed: 06/04/17 07:58> Provider - Provider Date of Admission: 05/27/17 12:20 Attending physician: Marlo Beal MD Hospital Course - Lab Results Lab Results: Micro Results 05/27/17 17:29 Urine,Clean Catch Urine Culture - Final 10-50,000 CFU/ML. MULTIPLE SPECIES. PROBABLE CONTAMINATION. Most Recent Lab Values WBC 3.6 K/uL (4.8-10.8) L 05/31/17 06:59 RBC 2.97 Mil/uL (4.40-5.90) L 05/31/17 06:59 Hgb 8.8 g/dL (12.0-18.0) L 05/31/17 06:59 Hct 25.9 % (35.0-51.0) L 05/31/17 06:59 MCV 87.2 fL (80.0-94.0) D 05/31/17 06:59 MCH 29.5 pg (27.0-31.0) 05/31/17 06:59 MCHC 33.9 g/dL (33.0-37.0) 05/31/17 06:59 RDW 18.8 % (11.5-14.5) H 05/31/17 06:59 Plt Count 166 K/uL (130-400) 05/31/17 06:59 MPV 8.0 fL (7.2-11.7) 05/31/17 06:59 Neut % (Auto) 72.1 % (50.0-75.0) 05/31/17 06:59 Lymph % (Auto) 16.5 % (20.0-40.0) L 05/31/17 06:59 [place] % (Auto) 7.4 % (0.0-10.0) 05/31/17 06:59 Eos % (Auto) 3.5 % (0.0-4.0) 05/31/17 06:59 Baso % (Auto) 0.5 % (0.0-2.0) 05/31/17 06:59 Neut # 2.6 K/uL (1.8-7.0) 05/31/17 06:59 Lymph # 0.6 K/uL (1.0-4.3) L 05/31/17 06:59 [place] # 0.3 K/uL (0.0-0.8) 05/31/17 06:59 Eos # 0.1 K/uL (0.0-0.7) 05/31/17 06:59 Baso # 0.0 K/uL (0.0-0.2) 05/31/17 06:59 Neutrophils % (Manual) 83 % (50-75) H 05/27/17 11:02 Band Neutrophils % 1 % (0-2) 05/27/17 11:02 Lymphocytes % (Manual) 9 % (20-40) L 05/27/17 11:02 Monocytes % (Manual) 6 % (0-10) 05/27/17 11:02 Eosinophils % (Manual) 1 % (0-4) 05/27/17 11:02 Platelet Estimate Normal (NORMAL) 05/27/17 11:02 Polychromasia Slight 05/27/17 11:02 Hypochromasia (manual) Slight 05/27/17 11:02 Poikilocytosis (manual Slight 05/27/17 11:02 Anisocytosis (manual) Moderate 05/27/17 11:02 Microcytosis (manual) Slight 05/27/17 11:02 Macrocytosis (manual) Slight 05/27/17 11:02 Ovalocytes Slight 05/27/17 11:02 Retic Count 3.7 % (0.5-1.5) H 05/28/17 08:20 Sodium 133 mmol/L (132-148) 05/31/17 04:00 Potassium 3.7 mmol/L (3.6-5.2) 05/31/17 04:00 Chloride 100 mmol/L (98-107) 05/31/17 04:00 Carbon Dioxide 25 mmol/L (22-30) 05/31/17 04:00 Anion Gap 12 (10-20) 05/31/17 04:00 BUN 13 mg/dL (9-20) 05/31/17 04:00 Creatinine 0.8 MG/DL (0.8-1.5) 05/31/17 04:00 Est GFR ( Amer) > 60 05/31/17 04:00 Est GFR (Non-Af Amer) > 60 05/31/17 04:00 POC Glucose (mg/dL) 101 mg/dL (65-110) 05/30/17 07:41 Random Glucose 82 mg/dL (75-110) 05/31/17 04:00 Hemoglobin A1c 5.4 % (4.2-6.5) 05/28/17 08:20 Calcium 7.5 mg/dl (8.6-10.4) L 05/31/17 04:00 Phosphorus 3.5 mg/dL (2.5-4.5) 05/29/17 07:08 Magnesium 2.1 mg/dL (1.6-2.3) 05/29/17 07:08 Iron 29 ug/dL (49-181) L 05/27/17 17:45 TIBC 221 ug/dL (250-450) L 05/27/17 17:45 % Saturation 13 (20-55) L 05/27/17 17:45 Ferritin 544.0 ng/mL 05/28/17 08:20 Total Bilirubin 0.6 mg/dL (0.2-1.3) 05/31/17 04:00 AST 21 U/L (17-59) 05/31/17 04:00 ALT 29 U/L (21-72) 05/31/17 04:00 Alkaline Phosphatase 345 U/L (38-126) H 05/31/17 04:00 Alk Phos Iso-Intestine 4 % (1-24) 05/28/17 08:20 Alk Phos Iso-Bone 82 % (28-66) H 05/28/17 08:20 Alk Phos Iso-Liver 18 % (25-69) L 05/28/17 08:20 Alk Phos Iso-Placenta 0 % (<=0) 05/28/17 08:20 Alk Phos Iso-Renal 0 % (<=0) 05/28/17 08:20 Total Creatine Kinase 1074 U/L (55-170) H 05/28/17 08:20 CK-MB (Mass) 3.19 ng/mL (0.0-3.38) 05/27/17 11:02 Troponin I < 0.0120 ng/mL (0.00-0.120) 05/27/17 11:02 Total Protein 5.1 g/dL (6.3-8.3) L 05/31/17 04:00 Albumin 2.4 g/dL (3.5-5.0) L 05/31/17 04:00 Globulin 2.7 gm/dL (2.2-3.9) 05/31/17 04:00 Albumin/Globulin Ratio 0.9 (1.0-2.1) L 05/31/17 04:00 Free PSA >17.0 ng/mL 05/30/17 06:52 % Free PSA Not calculated Percent (>25) 05/30/17 06:52 Total PSA 1372.0 ng/mL (<=4.0) H 05/30/17 06:52 Prostate Cancer Risk See note Percent 05/30/17 06:52 Vitamin B12 404 pg/mL (239-931) 05/28/17 08:20 RBC Folate 1138 ng/mL RBC (>280) 05/27/17 17:45 Free T4 1.11 ng/dL (0.78-2.19) 05/28/17 08:20 TSH 3rd Generation 2.42 mIU/L (0.46-4.68) 05/28/17 08:20 Urine Color [place]lee (YELLOW) 05/27/17 11:57 Urine Clarity Hazy (Clear) 05/27/17 11:57 Urine pH 6.0 (5.0-8.0) 05/27/17 11:57 Ur Specific [place] 1.026 (1.003-1.030) 05/27/17 11:57 Urine Protein 2+ mg/dL (NEGATIVE) H 05/27/17 11:57 Urine Glucose (UA) Normal mg/dL (Normal) 05/27/17 11:57 Urine Ketones Negative mg/dL (NEGATIVE) 05/27/17 11:57 Urine Blood Trace (NEGATIVE) H 05/27/17 11:57 Urine Nitrate Negative (NEGATIVE) 05/27/17 11:57 Urine Bilirubin Negative (NEGATIVE) 05/27/17 11:57 Urine Urobilinogen 4.0 mg/dL (0.2-1.0) 05/27/17 11:57 Ur Leukocyte Esterase 3+ Mona/uL (Negative) H 05/27/17 11:57 Urine WBC (Auto) 409 /hpf (0-5) H 05/27/17 11:57 Urine RBC (Auto) 12 /hpf (0-3) H 05/27/17 11:57 Ur Squamous Epith Cells 1 /hpf (0-5) 05/27/17 11:57 Urine Bacteria Rare (<OCC) 05/27/17 11:57 Stool Occult Blood Negative (NEGATIVE) 05/27/17 19:42 Blood Type O POSITIVE 05/30/17 14:00 Antibody Screen Negative 05/30/17 14:00 Attending/Attestation - Attestation I have personally seen and examined this patient.: Yes I have fully participated in the care of the patient.: Yes I have reviewed all pertinent clinical information, including history, physical exam and plan: Yes Notes (Text): Medical attending: Please note, this is a late entry. The patient was discharged a few days prior. Patient was seen and examined by me, agrees the above note by medical lab director. He reported that he felt okay he did not have any new complaints or concerns. He need to have 2 units of packed red blood cells given. He denied having shortness of breath or difficulty breathing. He still has difficulty walking according to the review of the history and physical. As mentioned previously he has weakness while here and states "I haven't walking years" however this seems to be different from the information from the history and physical The patient was DC to subacute rehabilitation as we did not think he will be able to go home home due to prolonged weakness thank you Collins Browne
--- NOTE | 2017-06-05 09:36 | VASCLAB ---
PROCEDURE: Left Upper Extremity Venous Duplex Exam HISTORY: left upper extremity swelling PRIORS: None. TECHNIQUE: Left upper extremity, internal jugular, subclavian, axillary, brachial, ulnar, radial, basilic and upper cephalic veins were evaluated. Flow was assessed with color Doppler, compressibility, assessment of phasic flow and augmentation response. Report prepared by GAURANG Bourgeois, RVT FINDINGS: LEFT: 1. Internal Jugular: 1.1. Compressibility - Fully compressible: Thrombus - None : Flow - Phasic: Augmentation -Normal: Reflux - None. 2. Subclavian: 2.1. Compressibility - Fully compressible: Thrombus - None : Flow - Phasic: Augmentation -Normal: Reflux - None. 3. Axillary: 3.1. Compressibility - Fully compressible: Thrombus - None : Flow - Phasic: Augmentation -Normal: Reflux - None. 4. Brachial: 4.1. Compressibility - Fully compressible: Thrombus - None: Flow - Phasic: Augmentation -Normal: Reflux - None. 5. Ulnar: 5.1. Compressibility - Fully compressible: Thrombus - None: Flow - Phasic: Augmentation -Normal: Reflux - None. 6. Radial: 6.1. Compressibility - Fully compressible: Thrombus - None: Flow - Phasic: Augmentation - Normal: Reflux - None. 7. Cephalic: 7.1. Compressibility - Fully compressible: Thrombus - None: Flow - Phasic: Augmentation -Normal: Reflux - None. 8. Basilic: 8.1. Compressibility - Fully compressible: Thrombus - None: Flow - Phasic: Augmentation -Normal: Reflux - None. OTHER FINDINGS: Left: None. IMPRESSION: Left: No evidence of vein thrombosis of the left upper extremity with excellent venous flow. Normal valve function noted of the left side. Normal venous flow noted in the right internal jugular and right subclavian veins.
== END 2017-05-31 23:10 | DRG 812 ==
LOC: C.ER 10:15 → C.9E 12:20 → C.3T 21:59
PROVIDERS: ADMIT Internal Medicine; ATTEND Internal Medicine
PROC: 30233N1 Transfusion of Nonautologous Red Blood Cells into Peripheral Vein, Percutaneous Approach (ICD-10-PCS; principal; 2017-05-27)
DX: D64.9 Anemia, unspecified (principal); C79.51 Secondary malignant neoplasm of bone; M62.82 Rhabdomyolysis; E27.8 Other specified disorders of adrenal gland; N13.30 Unspecified hydronephrosis; N39.0 Urinary tract infection, site not specified; J98.4 Other disorders of lung; G30.9 Alzheimer's disease, unspecified; F02.80 Dementia in other diseases classified elsewhere, unspecified severity, without behavioral disturbance, psychotic disturbance, mood disturbance, and anxiety; I10 Essential (primary) hypertension; R73.9 Hyperglycemia, unspecified; R74.8 Abnormal levels of other serum enzymes; N40.1 Benign prostatic hyperplasia with lower urinary tract symptoms; K44.9 Diaphragmatic hernia without obstruction or gangrene; K59.00 Constipation, unspecified; K21.9 Gastro-esophageal reflux disease without esophagitis; Z66 Do not resuscitate; I71.4 Abdominal aortic aneurysm, without rupture; Z85.038 Personal history of other malignant neoplasm of large intestine; Z96.641 Presence of right artificial hip joint